=== PATIENT | female | born 1935 | race Caucasian/White ===

== ENCOUNTER 2018-05-01 06:11 | Inpatient (IN) | payer MEDICARE, MEDICAID ==
[~2018-05-01] VITALS: Ht 144.8 cm; Wt 87.5 kg
[2018-05-01] VITALS (73 sets, daily range): BP systolic 48–170; BP diastolic 23–97
[~2018-05-01 06:11] MED LIST: AMLO5TAB4 PO; ASPI-986 PO; BIMA2.5D4 BOTHEYE; LOSA25TA3 PO; NITR0.4T49 SL
[2018-05-01] MEDS ORDERED: SKIN ADHESIVE 0.7 GM EA TOP ONE (08:00)
[2018-05-01] MEDS ORDERED: BUPIVACAINE HCL 0.5% (5MG/ML) 50ML ONE (08:00)
[2018-05-01] MEDS ORDERED: FENTANYL CITRATE/PF 50MCG/ML 2ML VIAL ONE (08:24)
[2018-05-01] MEDS ORDERED: PROPOFOL 200MG/20ML VIAL IV ONE (08:24)
[2018-05-01] MEDS ORDERED: ROCURONIUM BROMIDE 10MG/ML VIAL 5ML IV ONE (08:24)
[2018-05-01] MEDS ORDERED: MIDAZOLAM HCL 2 MG/2 ML VIAL ONE (08:24)
[2018-05-01] MEDS ORDERED: KETOROLAC 30MG/ML VIAL ONE (08:46)
[2018-05-01] MEDS ORDERED: SUCCINYLCHOLINE CHLORIDE 200MG/10ML VIAL IV ONE (08:46)
[2018-05-01] MEDS ORDERED: BUPIVACAINE HCL 0.5% 290 ML in ON-Q PM015 DRUG DELIV DEVICE 1 EA IR ONE (08:56)
[2018-05-01] MEDS ORDERED: MORPHINE SULFATE 2 MG/ML CPJ (NOT FOR IM USE) IV PRN (09:15)
[2018-05-01] MEDS ORDERED: HYDROMORPHONE HCL/PF 2MG/ML CPJ IV PRN ×2 (09:15)
[2018-05-01] MEDS ORDERED: ONDANSETRON HCL 4MG/2ML VIAL IV PRN ×2 (09:15)
[2018-05-01] MEDS ORDERED: MEPERIDINE HCL/PF 25MG/ML CPJ IV PRN ×2 (09:15)
[2018-05-01] MEDS ORDERED: MORPHINE SULFATE 4 MG/ML CPJ (NOT FOR IM USE) IV PRN (09:15)
[2018-05-01] MEDS ORDERED: FENTANYL CITRATE/PF 50MCG/ML 2ML VIAL IV PRN ×2 (09:15)
[2018-05-01] MEDS ORDERED: NEOSTIGMINE METHYLSULFATE 1MG/ML 10 ML VIAL ONE (09:26)
[2018-05-01] MEDS ORDERED: GLYCOPYRROLATE 0.2 MG/ML 2ML VIAL ONE (09:26)
[2018-05-01] MEDS ORDERED: METOCLOPRAMIDE HCL 10MG/2ML VIAL ONE (09:26)
[2018-05-01] MEDS ORDERED: NALOXONE INJ IV PRN (10:00)
[2018-05-01] MEDS ORDERED: DIPHENHYDRAMINE INJ IV PRN (10:00)
[2018-05-01] MEDS ORDERED: HYDROMORPHONE PCA 10MG/50ML IV PRN (10:00)
[2018-05-01] MEDS ORDERED: ONDANSETRON INJ IV PRN (10:00)
[2018-05-01 10:26] LABS: BASOPHILS % 0.3 % (0.0-2.0); EOSINOPHILS % 0.3 % (0.0-5.0); HEMATOCRIT. 36.5 % (36.0-48.0); HEMOGLOBIN. 12.3 g/dL (12.0-16.0); LYMPHOCYTES % 15.4 % (20.0-50.0); MEAN CORPUSCULAR HEMOGLOBIN 30.4 pg (28.0-32.0); MEAN CORPUSCULAR VOLUME 90.6 fL (81.0-99.0); MONOCYTES % 6.3 % (2.0-8.0); NEUTROPHILS % 77.7 % (40.0-76.0); PLATELET 373 x1000/uL (130-400); RED BLOOD CELL COUNT 4.03 mill/uL (4.2-5.4); RED CELL DISTRIBUTION WIDTH 13.3 % (11.6-14.6)
[2018-05-01] MEDS ORDERED: PHENYLEPHRINE HCL 10 MG/ML 1ML (IV VIAL) IV ONE (10:30)
[2018-05-01] MEDS ORDERED: EPINEPHRINE 1:1000 1 MG/ML AMP ONE ×4 (10:31→11:48)
[2018-05-01] MEDS ORDERED: THROMBIN (BOVINE) 5000 UNITS/VIAL TOP ONE ×4 (10:43→14:03)
[2018-05-01] MEDS ORDERED: GELATIN SPONGE,COMPRESSED SZ 100 ONE ×3 (10:43→14:03)
[2018-05-01 11:03] LABS: BASOPHILS % 0.4 % (0.0-2.0); EOSINOPHILS % 0.5 % (0.0-5.0); LYMPHOCYTES % 19.1 % (20.0-50.0); MEAN CORPUSCULAR HEMOGLOBIN 30.5 pg (28.0-32.0); MEAN CORPUSCULAR VOLUME 92.2 fL (81.0-99.0); MEAN PLATELET VOLUME 7.1 fl (7.4-10.4); MONOCYTES % 4.4 % (2.0-8.0); NEUTROPHILS % 75.6 % (40.0-76.0); PLATELET 229 x1000/uL (130-400); RED BLOOD CELL COUNT 2.25 mill/uL (4.2-5.4); RED CELL DISTRIBUTION WIDTH 13.7 % (11.6-14.6)
[2018-05-01 11:09] LABS: HEMATOCRIT. 20.7 % (36.0-48.0); HEMOGLOBIN. 6.9 g/dL (12.0-16.0)
[2018-05-01 11:09] LABS: BG BASE EXCESS -13.1 mmol/L (-2.0-2.0); BG CARBOXYHEMOGLOBIN 0.3 % (0.5-1.5); BG DEOXYHEMOGLOBIN 0.5 % (0.0-5.0); BG HCO3 ACT 14.1 mmol/L (22.0-26.0); BG METHEMOGLOBIN 0.2 % (0.0-1.5); BG OXYGEN SATURATION 99.5 % (92.0-98.5); BG PCO2 38.5 mmHg (35.0-45.0); BG PH 7.183 (7.350-7.450); BG PO2 596.5 mmHg (75.0-100.0); BG SAMPLE SITE A-LINE; BG TOTAL HEMOGLOBIN 7.8 g/dL (12.0-18.0); BG VENT MODE VENT - A/C
[2018-05-01] MEDS ORDERED: EPINEPHRINE 0.1MG/ML (1:10,000) 10ML SYR ONE ×5 (11:31→14:13)
[2018-05-01] MEDS ORDERED: EPINEPHRINE 1 MG in SODIUM CHLORIDE 0.9% 249 ML IV PRN (11:45)
[2018-05-01] MEDS ORDERED: SIMV20TA6 PO (12:16)
[2018-05-01 12:19] LABS: BG BASE EXCESS -13.7 mmol/L (-2.0-2.0); BG CARBOXYHEMOGLOBIN 0.3 % (0.5-1.5); BG HCO3 ACT 11.7 mmol/L (22.0-26.0); BG METHEMOGLOBIN 0.3 % (0.0-1.5); BG OXYHEMOGLOBIN 98.4 % (94.0-97.0); BG PCO2 26.2 mmHg (35.0-45.0); BG PH 7.269 (7.350-7.450); BG PO2 531.3 mmHg (75.0-100.0); BG SAMPLE SITE A-LINE; BG TIDAL VOLUME(mL) 550 mL; BG TOTAL HEMOGLOBIN 10.6 g/dL (12.0-18.0); BG VENT MODE VENT - A/C; BG VENT RATE 16 set
[2018-05-01] MEDS ORDERED: PANTOPRAZOLE SODIUM 40 MG/VIAL IV NR (12:45)
[2018-05-01] MEDS ORDERED: DOPAMINE 800MG PREMIX 250 ML IV PRN (12:45)
[2018-05-01] MEDS ORDERED: CALCIUM CHLORIDE 1GM/10ML SYR IV ONE ×4 (12:55→14:13)
[2018-05-01] MEDS ORDERED: SODIUM BICARBONATE 4% (2.4MEQ) 5ML VIAL IV ONE (12:55)
[2018-05-01] MEDS ORDERED: SODIUM BICARBONATE 8.4% 1 MEQ/ML 50ML SYR IV ONE ×2 (12:56→13:15)
[2018-05-01] MEDS ORDERED: IPRATROPIUM/ALBUTEROL 0.5-3(2.5)MG/3ML NEB HHN PRN (13:00)
[2018-05-01] MEDS ORDERED: EPINEPHRINE 0.1MG/ML (1:10,000) 10ML SYR IV ONE (13:15)
[2018-05-01] MEDS ORDERED: ALBUMIN HUMAN 12.5G/250ML (5%) IV ONE (13:15)
[2018-05-01] MEDS ORDERED: ETOMIDATE 2MG/ML 10ML VIAL IV ONE (13:20)
[2018-05-01] MEDS ORDERED: FUROSEMIDE 40MG/4ML VIAL ONE (13:21)
[2018-05-01] MEDS ORDERED: MAGNESIUM 20 G PREMIX (L & D) 500 ML IV ONE (13:27)
[2018-05-01 13:42] LABS: BASOPHILS % 0.3 % (0.0-2.0); EOSINOPHILS % 0.4 % (0.0-5.0); HEMATOCRIT. 35.3 % (36.0-48.0); HEMOGLOBIN. 11.7 g/dL (12.0-16.0); LYMPHOCYTES % 28.5 % (20.0-50.0); MEAN CORPUSCULAR HEMOGLOBIN 31.4 pg (28.0-32.0); MEAN CORPUSCULAR VOLUME 94.5 fL (81.0-99.0); MEAN PLATELET VOLUME 8.6 fl (7.4-10.4); MONOCYTES % 7.3 % (2.0-8.0); NEUTROPHILS % 63.5 % (40.0-76.0); RED BLOOD CELL COUNT 3.73 mill/uL (4.2-5.4); RED CELL DISTRIBUTION WIDTH 14.2 % (11.6-14.6)
[2018-05-01] MEDS ORDERED: NITROGLYCERIN 50MG PREMIX 250 ML IV ONE (13:45)
[2018-05-01 13:46] LABS: BG BASE EXCESS -12.8 mmol/L (-2.0-2.0); BG CARBOXYHEMOGLOBIN 0.3 % (0.5-1.5); BG DEOXYHEMOGLOBIN 0.8 % (0.0-5.0); BG FRACTION INSPIRED OXYGEN 100; BG HCO3 ACT 13.6 mmol/L (22.0-26.0); BG METHEMOGLOBIN 0.3 % (0.0-1.5); BG OXYGEN SATURATION 99.2 % (92.0-98.5); BG OXYHEMOGLOBIN 98.6 % (94.0-97.0); BG PH 7.233 (7.350-7.450); BG PO2 531.3 mmHg (75.0-100.0); BG SAMPLE SITE A-LINE; BG TOTAL HEMOGLOBIN 12.2 g/dL (12.0-18.0); BG VENT MODE VENT - A/C
[2018-05-01] MEDS ORDERED: ESMOLOL HCL 10MG/ML 10ML VIAL IV ONE (13:50)
[2018-05-01] MEDS ORDERED: ESMOLOL 2500MG PREMIX 0 ML IV ONE (13:50)
[2018-05-01 13:52] LABS: INR 1.5; PARTIAL THROMBOPLASTIN TIME 38.5 sec (23.4-31.0); PROTHROMBIN TIME 14.8 sec (9.1-11.1)
[2018-05-01 13:54] LABS: PHOSPHORUS 7.7 mg/dL (2.5-4.9)
[2018-05-01] MEDS ORDERED: PIPERACILLIN/TAZ 3.375G PREMIX 50 ML IV SCH (14:00)
[2018-05-01] MEDS ORDERED: NOREPINEPHRINE BITARTRATE 1MG/ML 4ML IV ONE (14:06)
[2018-05-01] MEDS ORDERED: DEXT 5% IV ONE (14:06)
[2018-05-01] MEDS ORDERED: DOPAMINE IV ONE (14:06)
[2018-05-01] MEDS ORDERED: SODIUM BICARBONATE 7.5% 0.9 MEQ/ML 50ML SYR IV ONE (14:13)
[2018-05-01] MEDS ORDERED: DESMOPRESSIN ACETATE 20 MCG in SODIUM CHLORIDE 0.9% 50 ML IV SCH (14:15)
[2018-05-01 14:19] LABS: CREATINE KINASE MB FRACTION 3.3 ng/mL (0.5-3.6)
[2018-05-01 14:37] LABS: BG BASE EXCESS -17.1 mmol/L (-2.0-2.0); BG CARBOXYHEMOGLOBIN 0.5 % (0.5-1.5); BG DEOXYHEMOGLOBIN 0.6 % (0.0-5.0); BG FRACTION INSPIRED OXYGEN 100; BG HCO3 ACT 11.4 mmol/L (22.0-26.0); BG METHEMOGLOBIN 0.1 % (0.0-1.5); BG OXYGEN SATURATION 99.4 % (92.0-98.5); BG OXYHEMOGLOBIN 98.8 % (94.0-97.0); BG PCO2 36.3 mmHg (35.0-45.0); BG PH 7.115 (7.350-7.450); BG PO2 465.8 mmHg (75.0-100.0); BG SAMPLE SITE A-LINE; BG TOTAL HEMOGLOBIN 15.1 g/dL (12.0-18.0); BG VENT MODE VENT - A/C
[2018-05-01 15:28] LABS: BASOPHILS % 0.1 % (0.0-2.0); EOSINOPHILS % 0.4 % (0.0-5.0); HEMATOCRIT. 53.5 % (36.0-48.0); HEMOGLOBIN. 17.8 g/dL (12.0-16.0); LYMPHOCYTES % 21.7 % (20.0-50.0); MEAN CORPUSCULAR HEMOGLOBIN 29.9 pg (28.0-32.0); MEAN CORPUSCULAR VOLUME 89.6 fL (81.0-99.0); MEAN PLATELET VOLUME 7.8 fl (7.4-10.4); MONOCYTES % 1.4 % (2.0-8.0); NEUTROPHILS % 76.4 % (40.0-76.0); PLATELET 88 x1000/uL (130-400); RED BLOOD CELL COUNT 5.98 mill/uL (4.2-5.4); RED CELL DISTRIBUTION WIDTH 15.2 % (11.6-14.6)
[2018-05-01] MEDS ORDERED: COAGULATION FACTOR VIIA RECOMB 2MG VIAL IV ONE (15:30)
[2018-05-01] MEDS ORDERED: HUMAN PROTHROMBIN COMPLX (PCC) 500 UNITS VIAL IV ONE (15:30)
[2018-05-01] MEDS: NOREPINEPHRINE 16 MG in DEXT 5% WATER 234 ML IV PRN (15:30)
[2018-05-01] MEDS: EPINEPHRINE 4 MG in SODIUM CHLORIDE 0.9% 249 ML IV PRN ×2 (15:30→20:35)
[2018-05-01 15:34] LABS: CHLORIDE 115 mEq/L (98-107)
[2018-05-01 15:43] LABS: BG BASE EXCESS -13.4 mmol/L (-2.0-2.0); BG CARBOXYHEMOGLOBIN 0.3 % (0.5-1.5); BG DEOXYHEMOGLOBIN 2.3 % (0.0-5.0); BG HCO3 ACT 12.7 mmol/L (22.0-26.0); BG METHEMOGLOBIN 0.3 % (0.0-1.5); BG OXYGEN SATURATION 97.7 % (92.0-98.5); BG OXYHEMOGLOBIN 97.1 % (94.0-97.0); BG PCO2 31.5 mmHg (35.0-45.0); BG PH 7.224 (7.350-7.450); BG PO2 101.5 mmHg (75.0-100.0); BG SAMPLE SITE A-LINE; BG TIDAL VOLUME(mL) 550 mL; BG TOTAL HEMOGLOBIN 18.6 g/dL (12.0-18.0); BG VENT MODE VENT - A/C; BG VENT RATE 16 set
[2018-05-01 15:47] LABS: INR 1.7; PROTHROMBIN TIME 17.4 sec (9.1-11.1)
[2018-05-01 15:49] LABS: PARTIAL THROMBOPLASTIN TIME 112.2 sec (23.4-31.0)
[2018-05-01 15:50] LABS: FIBRINOGEN 71 mg/dL (200-400)
[2018-05-01 16:04] LABS: PHOSPHORUS 9.5 mg/dL (2.5-4.9)
[2018-05-01] MEDS ORDERED: SODIUM BICARBONATE 8.4% 1 MEQ/ML 50ML SYR IV NR (16:11)
[2018-05-01 16:30] LABS: D-DIMER > 35.20 mg/L FEU (<0.50)
[2018-05-01] MEDS: VASOPRESSIN 10 UNIT in SODIUM CHLORIDE 0.9% 99.5 ML IV PRN ×2 (17:10→20:35)
[2018-05-01] MEDS: PHENYLEPHRINE 40 MG in DEXT 5% WATER 246 ML IV PRN ×2 (17:12→21:24)
[2018-05-01] MEDS ORDERED: SODIUM CHLORIDE 0.9% IV SCH (18:00)
[2018-05-01] MEDS ORDERED: CALCIUM CHLORIDE IV SCH (18:00)
[2018-05-01] MEDS: SODIUM BICARBONATE 100 MEQ in DEXTROSE 5% WATER 1,000 ML IV SCH (19:41)
[2018-05-01] MEDS: IPRATROPIUM/ALBUTEROL 0.5-3(2.5)MG/3ML NEB HHN SCH (20:18)
[2018-05-01 21:15] LABS: HEMATOCRIT. 21.8 % (36.0-48.0); HEMOGLOBIN. 7.3 g/dL (12.0-16.0); MEAN CORPUSCULAR HEMOGLOBIN 29.5 pg (28.0-32.0); MEAN CORPUSCULAR VOLUME 87.6 fL (81.0-99.0); MEAN PLATELET VOLUME 7.7 fl (7.4-10.4); PLATELET 73 x1000/uL (130-400); RED BLOOD CELL COUNT 2.49 mill/uL (4.2-5.4); RED CELL DISTRIBUTION WIDTH 14.9 % (11.6-14.6)
[2018-05-01 21:21] LABS: INR 1.4; PARTIAL THROMBOPLASTIN TIME 57.9 sec (23.4-31.0)
[2018-05-01 21:23] LABS: PHOSPHORUS 4.4 mg/dL (2.5-4.9)
[2018-05-01 22:45] LABS: NUCLEATED RED BLOOD CELLS 1 /100 WBC; PLATELET ESTIMATE DECREASED
[2018-05-02] VITALS (136 sets, daily range): BP systolic 53–204; BP diastolic 33–168
[2018-05-02] MEDS ORDERED: POTASSIUM CHLORIDE INJ 40 MEQ in DEXT 5% WATER 500 ML IV NR ×2
[2018-05-02] MEDS: NOREPINEPHRINE 16 MG in DEXT 5% WATER 234 ML IV PRN (01:55)
[2018-05-02] MEDS: VASOPRESSIN 10 UNIT in SODIUM CHLORIDE 0.9% 99.5 ML IV PRN ×4 (01:56→23:49)
[2018-05-02] MEDS: IPRATROPIUM/ALBUTEROL 0.5-3(2.5)MG/3ML NEB HHN SCH ×4 (02:42→20:17)
[2018-05-02 03:47] LABS: BASOPHILS % 0.2 % (0.0-2.0); EOSINOPHILS % 0.7 % (0.0-5.0); LYMPHOCYTES % 12.9 % (20.0-50.0); MEAN CORPUSCULAR HEMOGLOBIN 31.7 pg (28.0-32.0); MEAN CORPUSCULAR VOLUME 90.6 fL (81.0-99.0); MEAN PLATELET VOLUME 9.3 fl (7.4-10.4); MONOCYTES % 6.5 % (2.0-8.0); NEUTROPHILS % 79.7 % (40.0-76.0); PLATELET 95 x1000/uL (130-400); RED BLOOD CELL COUNT 1.63 mill/uL (4.2-5.4)
[2018-05-02 03:59] LABS: PHOSPHORUS 4.8 mg/dL (2.5-4.9)
[2018-05-02 04:00] LABS: PARTIAL THROMBOPLASTIN TIME 30.5 sec (23.4-31.0)
[2018-05-02 04:22] LABS: HEMATOCRIT. 14.8 % (36.0-48.0); HEMOGLOBIN. 5.2 g/dL (12.0-16.0)
[2018-05-02] MEDS ORDERED: PIPERACILLIN/TAZ 3.375G PREMIX 50 ML IV SCH (08:00)
[2018-05-02 08:38] LABS: BG BASE EXCESS -13.5 mmol/L (-2.0-2.0); BG CARBOXYHEMOGLOBIN 0.3 % (0.5-1.5); BG DEOXYHEMOGLOBIN 2.3 % (0.0-5.0); BG FRACTION INSPIRED OXYGEN 50; BG HCO3 ACT 10.6 mmol/L (22.0-26.0); BG METHEMOGLOBIN 0.2 % (0.0-1.5); BG OXYGEN SATURATION 97.7 % (92.0-98.5); BG OXYHEMOGLOBIN 97.2 % (94.0-97.0); BG PCO2 19.6 mmHg (35.0-45.0); BG PH 7.349 (7.350-7.450); BG PO2 119.2 mmHg (75.0-100.0); BG SAMPLE SITE A-LINE; BG TIDAL VOLUME(mL) 550 mL; BG VENT MODE VENT - A/C; BG VENT RATE 20 set
[2018-05-02] MEDS: PANTOPRAZOLE SODIUM 40 MG/VIAL IV SCH (08:40)
[2018-05-02] MEDS: PIPERACILLIN/TAZ 2.25G PREMIX 50 ML IV SCH ×3 (08:40→23:06)
[2018-05-02] MEDS: SODIUM BICARBONATE 100 MEQ in DEXTROSE 5% WATER 1,000 ML IV SCH ×2 (09:09→23:02)
[2018-05-02] MEDS ORDERED: FUROSEMIDE 40MG/4ML VIAL IVP NR (10:15)
[2018-05-02] MEDS: FENTANYL CITRATE/PF 500 MCG in SODIUM CHLORIDE 0.9% 40 ML IV PRN (13:07)
[2018-05-02 13:29] LABS: PLATELET 24 x1000/uL (130-400)
[2018-05-02] MEDS: BLOOD SUGAR DIAGNOSTIC STRIP TEST SCH ×3 (14:09→23:12)
[2018-05-02] MEDS: INSULIN LISPRO 100 UNITS/ML SUBCUT SCH ×3 (14:10→23:12)
[2018-05-02 16:33] LABS: PARTIAL THROMBOPLASTIN TIME 29.4 sec (23.4-31.0)
[2018-05-02 16:39] LABS: BASOPHILS % 0.2 % (0.0-2.0); EOSINOPHILS % 0.5 % (0.0-5.0); HEMATOCRIT. 27.8 % (36.0-48.0); HEMOGLOBIN. 9.7 g/dL (12.0-16.0); LYMPHOCYTES % 13.8 % (20.0-50.0); MEAN CORPUSCULAR HEMOGLOBIN 31.3 pg (28.0-32.0); MEAN CORPUSCULAR VOLUME 89.5 fL (81.0-99.0); MONOCYTES % 5.6 % (2.0-8.0); NEUTROPHILS % 79.9 % (40.0-76.0); RED CELL DISTRIBUTION WIDTH 14.4 % (11.6-14.6)
[2018-05-02 16:58] LABS: PHOSPHORUS 8.1 mg/dL (2.5-4.9)
[2018-05-02 17:01] LABS: PLATELET 32 x1000/uL (130-400)
[2018-05-02 17:12] LABS: INR 1.5; PROTHROMBIN TIME 14.9 sec (9.1-11.1)
[2018-05-02] MEDS: DEXTROSE 50% WATER 50ML SYRINGE IV PRN ×2 (18:22→23:50)
[2018-05-02] MEDS: EPINEPHRINE 4 MG in SODIUM CHLORIDE 0.9% 249 ML IV PRN (18:44)
[2018-05-03] VITALS (136 sets, daily range): BP systolic 46–196; BP diastolic 17–189
[2018-05-03 00:45] LABS: HEMATOCRIT 21.8 % (36.0-48.0); HEMOGLOBIN 7.4 g/dL (12.0-16.0); MEAN CORPUSCULAR HEMOGLOBIN 30.5 pg (28.0-32.0); MEAN CORPUSCULAR VOLUME 90.3 fL (81.0-99.0); PLATELET 191 x1000/uL (130-400); RED BLOOD CELL COUNT 2.42 mill/uL (4.2-5.4); RED CELL DISTRIBUTION WIDTH 15.3 % (11.6-14.6)
[2018-05-03 01:04] LABS: INR 1.6; PARTIAL THROMBOPLASTIN TIME 35.4 sec (23.4-31.0); PROTHROMBIN TIME 16.2 sec (9.1-11.1)
[2018-05-03] MEDS: EPINEPHRINE 4 MG in SODIUM CHLORIDE 0.9% 249 ML IV PRN ×4 (01:52→22:05)
[2018-05-03] MEDS: IPRATROPIUM/ALBUTEROL 0.5-3(2.5)MG/3ML NEB HHN SCH ×4 (02:12→19:55)
[2018-05-03] MEDS: VASOPRESSIN 10 UNIT in SODIUM CHLORIDE 0.9% 99.5 ML IV PRN ×5 (04:23→22:46)
[2018-05-03] MEDS: BLOOD SUGAR DIAGNOSTIC STRIP TEST SCH ×5 (05:01→22:51)
[2018-05-03] MEDS: INSULIN LISPRO 100 UNITS/ML SUBCUT SCH ×5 (05:03→22:51)
[2018-05-03 06:48] LABS: CHLORIDE 97 mEq/L (98-107)
[2018-05-03] MEDS: PHENYLEPHRINE 40 MG in DEXT 5% WATER 246 ML IV PRN (07:30)
[2018-05-03] MEDS: NOREPINEPHRINE 16 MG in DEXT 5% WATER 234 ML IV PRN (07:31)
[2018-05-03 08:00] LABS: HEMOGLOBIN 9.9 g/dL (12.0-16.0); MEAN CORPUSCULAR VOLUME 90.8 fL (81.0-99.0); PLATELET 169 x1000/uL (130-400); RED BLOOD CELL COUNT 3.19 mill/uL (4.2-5.4); RED CELL DISTRIBUTION WIDTH 15.1 % (11.6-14.6)
[2018-05-03 08:21] LABS: BG BASE EXCESS -16.9 mmol/L (-2.0-2.0); BG DEOXYHEMOGLOBIN 6.6 % (0.0-5.0); BG FRACTION INSPIRED OXYGEN 50; BG HCO3 ACT 9.7 mmol/L (22.0-26.0); BG METHEMOGLOBIN 0.8 % (0.0-1.5); BG OXYGEN SATURATION 93.3 % (92.0-98.5); BG OXYHEMOGLOBIN 92.6 % (94.0-97.0); BG PCO2 25.7 mmHg (35.0-45.0); BG PH 7.193 (7.350-7.450); BG PO2 81.3 mmHg (75.0-100.0); BG SAMPLE SITE A-LINE; BG TIDAL VOLUME(mL) 550 mL; BG TOTAL HEMOGLOBIN 10.1 g/dL (12.0-18.0); BG VENT MODE VENT - A/C; BG VENT RATE 20 set
[2018-05-03] MEDS ORDERED: SODIUM BICARBONATE 8.4% 1 MEQ/ML 50ML SYR IV NR ×3 (08:30→15:15)
[2018-05-03] MEDS: PANTOPRAZOLE SODIUM 40 MG/VIAL IV SCH (08:37)
[2018-05-03] MEDS: PIPERACILLIN/TAZ 2.25G PREMIX 50 ML IV SCH ×3 (08:37→23:13)
[2018-05-03] MEDS: FENTANYL CITRATE/PF 500 MCG in SODIUM CHLORIDE 0.9% 40 ML IV PRN (09:19)
[2018-05-03 10:31] LABS: PROTHROMBIN TIME 20.1 sec (9.1-11.1)
[2018-05-03 11:11] LABS: BG CARBOXYHEMOGLOBIN 0.3 % (0.5-1.5); BG DEOXYHEMOGLOBIN 5.3 % (0.0-5.0); BG FRACTION INSPIRED OXYGEN 60; BG HCO3 ACT 9.1 mmol/L (22.0-26.0); BG METHEMOGLOBIN 0.9 % (0.0-1.5); BG OXYGEN SATURATION 94.6 % (92.0-98.5); BG OXYHEMOGLOBIN 93.5 % (94.0-97.0); BG PH 7.274 (7.350-7.450); BG PO2 87.2 mmHg (75.0-100.0); BG SAMPLE SITE A-LINE; BG TIDAL VOLUME(mL) 550 mL; BG TOTAL HEMOGLOBIN 9.6 g/dL (12.0-18.0); BG VENT MODE VENT - A/C; BG VENT RATE 24 set
[2018-05-03] MEDS: DEXTROSE 50% WATER 50ML SYRINGE IV PRN ×2 (12:33→18:21)
[2018-05-03] MEDS: SODIUM BICARBONATE 100 MEQ in DEXTROSE 5% WATER 1,000 ML IV SCH (14:15)
[2018-05-03] MEDS ORDERED: FUROSEMIDE 100MG/10ML VIAL IVP NR (15:15)
[2018-05-03] MEDS ORDERED: DEXTROSE 10% WATER 500 ML IV ONE (15:15)
[2018-05-03] MEDS: DEXT 10% WATER 1,000 ML IV SCH (15:30)
[2018-05-03] MEDS ORDERED: BLOOD SUGAR DIAGNOSTIC STRIP TEST SCH (17:00)
[2018-05-03] MEDS: SODIUM BICARBONATE 150 MEQ in DEXTROSE 5% WATER 1,000 ML IV SCH (17:26)
[2018-05-03] MEDS ORDERED: DEXTROSE 50% WATER 50ML SYRINGE IV PRN (18:30)
[2018-05-04] VITALS (51 sets, daily range): BP systolic 0–150; BP diastolic 0–134
[2018-05-04] MEDS: IPRATROPIUM/ALBUTEROL 0.5-3(2.5)MG/3ML NEB HHN SCH ×2 (01:47→09:02)
[2018-05-04] MEDS: INSULIN LISPRO 100 UNITS/ML SUBCUT SCH ×2 (03:00→06:43)
[2018-05-04] MEDS: BLOOD SUGAR DIAGNOSTIC STRIP TEST SCH ×2 (03:02→06:43)
[2018-05-04] MEDS: VASOPRESSIN 10 UNIT in SODIUM CHLORIDE 0.9% 99.5 ML IV PRN ×2 (03:06→07:56)
[2018-05-04] MEDS: SODIUM BICARBONATE 150 MEQ in DEXTROSE 5% WATER 1,000 ML IV SCH (03:50)
[2018-05-04] MEDS: FENTANYL CITRATE/PF 500 MCG in SODIUM CHLORIDE 0.9% 40 ML IV PRN ×2 (03:50→07:58)
[2018-05-04] MEDS: EPINEPHRINE 4 MG in SODIUM CHLORIDE 0.9% 249 ML IV PRN (04:58)
[2018-05-04 06:21] LABS: PARTIAL THROMBOPLASTIN TIME 50.6 sec (23.4-31.0); PROTHROMBIN TIME 29.4 sec (9.1-11.1)
[2018-05-04] MEDS: DEXT 10% WATER 1,000 ML IV SCH (06:41)
[2018-05-04 06:45] LABS: HEMATOCRIT. 23.7 % (36.0-48.0); HEMOGLOBIN. 8.2 g/dL (12.0-16.0); MEAN CORPUSCULAR HEMOGLOBIN 30.9 pg (28.0-32.0); MEAN CORPUSCULAR VOLUME 89.3 fL (81.0-99.0); MEAN PLATELET VOLUME 9.5 fl (7.4-10.4); PLATELET 94 x1000/uL (130-400); RED BLOOD CELL COUNT 2.66 mill/uL (4.2-5.4); RED CELL DISTRIBUTION WIDTH 15.5 % (11.6-14.6)
[2018-05-04 07:35] LABS: BG BASE EXCESS -11.6 mmol/L (-2.0-2.0); BG CARBOXYHEMOGLOBIN 0.7 % (0.5-1.5); BG DEOXYHEMOGLOBIN 4.9 % (0.0-5.0); BG HCO3 ACT 12.1 mmol/L (22.0-26.0); BG METHEMOGLOBIN 1.1 % (0.0-1.5); BG OXYHEMOGLOBIN 93.3 % (94.0-97.0); BG PCO2 21.1 mmHg (35.0-45.0); BG PH 7.376 (7.350-7.450); BG PO2 88.6 mmHg (75.0-100.0); BG SAMPLE SITE A-LINE; BG TIDAL VOLUME(mL) 500 mL; BG TOTAL HEMOGLOBIN 8.4 g/dL (12.0-18.0); BG VENT MODE VENT - A/C; BG VENT RATE 28 set
[2018-05-04] MEDS: PIPERACILLIN/TAZ 2.25G PREMIX 50 ML IV SCH (07:56)
[2018-05-04] MEDS: NOREPINEPHRINE 16 MG in DEXT 5% WATER 234 ML IV PRN (08:07)
[2018-05-04] MEDS: PANTOPRAZOLE SODIUM 40 MG/VIAL IV SCH (08:07)
[2018-05-04 09:16] LABS: CHLORIDE 90 mEq/L (98-107)
[2018-05-04 10:12] LABS: PHOSPHORUS 9.2 mg/dL (2.5-4.9)
[2018-05-04 12:20] LABS: NUCLEATED RED BLOOD CELLS 7 /100 WBC; PLATELET ESTIMATE DECREASED
== END 2018-05-04 13:03 | disposition expired | DRG 414 ==
LOC: OR 06:11 → CVICU 06:12
PROVIDERS: ADMIT Surgery; ATTEND Surgery
PROC: 0FT40ZZ Resection of Gallbladder, Open Approach (ICD-10-PCS; 2018-05-01)
PROC: 0FJ44ZZ Inspection of Gallbladder, Percutaneous Endoscopic Approach (ICD-10-PCS; 2018-05-01)
PROC: 0DB90ZZ Excision of Duodenum, Open Approach (ICD-10-PCS; 2018-05-01)
PROC: 0DNE0ZZ Release Large Intestine, Open Approach (ICD-10-PCS; 2018-05-01)
PROC: 30233N1 Transfusion of Nonautologous Red Blood Cells into Peripheral Vein, Percutaneous Approach (ICD-10-PCS; 2018-05-01)
PROC: 30233R1 Transfusion of Nonautologous Platelets into Peripheral Vein, Percutaneous Approach (ICD-10-PCS; 2018-05-01)
PROC: 30233M1 Transfusion of Nonautologous Plasma Cryoprecipitate into Peripheral Vein, Percutaneous Approach (ICD-10-PCS; 2018-05-01)
PROC: 30233K1 Transfusion of Nonautologous Frozen Plasma into Peripheral Vein, Percutaneous Approach (ICD-10-PCS; 2018-05-01)
PROC: 0BH17EZ Insertion of Endotracheal Airway into Trachea, Via Natural or Artificial Opening (ICD-10-PCS; 2018-05-01)
PROC: 5A1945Z Respiratory Ventilation, 24-96 Consecutive Hours (ICD-10-PCS; 2018-05-01)
PROC: 30233L1 Transfusion of Nonautologous Fresh Plasma into Peripheral Vein, Percutaneous Approach (ICD-10-PCS; principal; 2018-05-01 09:00)
DX: K80.20 Calculus of gallbladder without cholecystitis without obstruction (principal); D65 Disseminated intravascular coagulation [defibrination syndrome]; E43 Unspecified severe protein-calorie malnutrition; J96.00 Acute respiratory failure, unspecified whether with hypoxia or hypercapnia; K72.00 Acute and subacute hepatic failure without coma; N17.0 Acute kidney failure with tubular necrosis; E87.0 Hyperosmolality and hypernatremia; E87.2 Acidosis; K82.3 Fistula of gallbladder; Z68.41 Body mass index [BMI] 40.0-44.9, adult; K91.841 Postprocedural hemorrhage of a digestive system organ or structure following other procedure; Z66 Do not resuscitate; R73.9 Hyperglycemia, unspecified; R57.8 Other shock; Y83.8 Other surgical procedures as the cause of abnormal reaction of the patient, or of later complication, without mention of misadventure at the time of the procedure; Y82.8 Other medical devices associated with adverse incidents; K66.0 Peritoneal adhesions (postprocedural) (postinfection); E16.2 Hypoglycemia, unspecified; E78.5 Hyperlipidemia, unspecified; E86.1 Hypovolemia; I10 Essential (primary) hypertension; Z53.31 Laparoscopic surgical procedure converted to open procedure; Z82.49 Family history of ischemic heart disease and other diseases of the circulatory system; Z93.3 Colostomy status; Z98.42 Cataract extraction status, left eye; Z98.51 Tubal ligation status
CPT/HCPCS: 36415; 36600; 71045; 73706; 80048; 80053; 82375; 82550; 82553; 82805; 82962; 83605; 83735; 84100; 84484; 85025; 85027; 85362; 85379; 85384; 85610; 85730; 86850; 86900; 86920; 86927; 88304; 88307; 94002; 94003; 94640; C9113; C9132; J0330; J1265; J1885; J1940; J2250; J2370; J2405; J2543; J2597; J2704; J2710; J2765; J3010; J3475; J3480; J3490; J7030; J7040; J7050; J7060; J7070; J7120; J7189; J7620; P9012; P9016; P9017; P9034; P9041